=== PATIENT | female | born 1945 | race Caucasian/White ===

== ENCOUNTER → 2018-05-15 09:07 | Outpatient (CLI) | payer MEDICARE, BC ==
[2013-10-02 09:56] VITALS: BMI 32.2
--- NOTE | ~2018-05-15 | ST ---
PATIENT:TANYA ARELLANO MEDICAL RECORD: [id number] SEX: F LOCATION:[facility] ORDER #: ADMISSION DATE: 05/15/18 AGE OF PATIENT: 72 REFERRING PHYSICIAN: INTERPRETING PHYSICIAN: CALI LAI MD REFERRING PHYSICIAN: Lewis Cruz DO TECHNOLOGIST: ALLIE Harrington/Maximus Rios RIGHT (N) CLINICIAN: Sophia Mensah RN CLINICAL INDICATIONS: 1. Angina. 2. Shortness of breath. 3. Hypertension. 4. Hyperlipidemia. PHARMACOLOGIC STRESS PROCEDURE: 1. The patient performed a chemical stress test at rest receiving 0.4 mg Lexiscan by rapid IV injection over 10-15 seconds. 2. This was followed by 5 mL of normal saline both administered by above Clinician. 3. The tracer was administered IV 10-20 second post saline flush per protocol by Technologist. 4. The heart rate was 64 at baseline and was 104 at peak infusion. 5. The blood pressure response was normal. B/P was 211/84 at baseline, 168/78 at peak infusion. 6. The patient had no complaints of angina or anginal equivalent discomfort. 7. The patient had no complaints of shortness of breath following injection of Lexiscan. 8. No significant arrhythmias were observed. 9. The electrocardiogram demonstrated no ST changes suggestive of ischemia. 10. The electrocardiogram demonstrated a normal response to Lexiscan. 11. Normal response to Lexiscan pharmacological stress testing. REST STUDY: DATE: 05/15/18 HOUR: 09:40 RADIOISOTOPE: Cardiolite 99m Tc VOLUME: 0.6 mL ACTIVITY: 8.2 mCi METHOD OF ADMIN: IV SCAN STARTED: (hour) 10:50 STRESS STUDY: DATE: 05/15/18 HOUR: 11:05 RADIOISOTOPE: Cardiolite 99m Tc VOLUME: 0.6 mL ACTIVITY: 30.6 mCi METHOD OF ADMIN: IV SCAN STARTED: (hour) 12:00 GATED IMAGING: Gated SPECT reveals a preserved ejection fraction of 73% with good wall motion, thickening, and brightening throughout all segments. CARDIAC STRESS TEST [id number] TANYA ARELLANO SPECT: SPECT imaging was performed using Cardiolite as the myocardial perfusion imaging agent. There is homogeneous uptake throughout all segments but no evidence of inducible ischemia or previous infarction. OVERALL IMPRESSION: 1. This is a normal nuclear stress test with no evidence of inducible ischemia or previous infarction. 2. Gated SPECT reveals a preserved ejection fraction of 73%. 3. In this patient with ongoing symptomatology, the current scan has a low likelihood of hemodynamically significant coronary artery disease. 4. Would evaluate noncardiac etiology chest discomfort. CALI LAI MD at [id number] CC: [id number] DICTATION DATE: 05/15/18 1604 [place]RIX REPAIRER: DM 05/17/18 1343 DEP CLI 05/15/18 [facility] [address] [place] [address]
[~2018-05-15 09:07] MED LIST: ASPIRIN EC81 MG PO; CALCIUM 600+D T1 TA1 PO; FISH OIL 1,0001 CA1; MACROBID100 MG PO; MOBIC7.5 MG PO; MULTIPLE VITAMI1 TA1 PO; NORCO 7.5/325 T1 TA1 PO; PRAVACHOL20 MG PO; PREMARIN0.45 MG PO; PRILOSEC20 MG PO; RED YEAST RICE600 MG PO; ZYRTEC10 MG PO
== END | disposition home or self-care (01) ==
LOC: D.HCCARDIO 09:07
DX: R06.02 Shortness of breath (principal)

== ENCOUNTER → 2020-01-15 12:17 | Outpatient (CLI) | payer MEDICARE, BC ==
[2013-10-02 09:56] VITALS: BMI 32.2
== END | disposition home or self-care (01) ==
LOC: D.HCCECHO 12:17
PROVIDERS: ATTEND Internal Medicine Cardiovascular Disease
DX: I10 Essential (primary) hypertension (principal)